=== PATIENT | male | born 1975 | race African-American/Black ===

== ENCOUNTER 2018-09-22 01:13 | Emergency (ER) | payer OTHER ==
--- NOTE | 2018-09-22 01:19 | EDM.PDOC ---
ED HPI GENERAL MEDICAL PROBLEM - General Stated Complaint: LEFT INDEX FINGER BROKEN Time Seen by Provider: 09/22/18 01:19 Source of Information: Reports: Patient - History of Present Illness INITIAL COMMENTS - FREE TEXT/NARRATIVE: HISTORY AND PHYSICAL: History of present illness: [Presents with a work injury to his left distal index finger my initially seen at the [facility] at 2300 she was performed I did download the x-ray to [facility] for viewing Has a distal tuft fracture of the left second digit, with open lesion Apparently a truck axle fell on the distal portion of his finger There is a nice clean cut directly through the nail, no avulsion of the nail bed , however, it had lifted the nail significantly with the proximal portion of finger nail, a gram of Rocephin and tetanus status was updated, I did perform a digital block after wound was cleansed and explored Under sterile conditions was able to remove the fingernail, and performed 3 interrupted sutures of 4-0 Monocryl sutures, to approximate distal portion. Bacitracin Bandaging Splint Review of systems: As per history of present illness and below otherwise all systems reviewed and negative. Past medical history: As per history of present illness and as reviewed below otherwise noncontributory. Surgical history: As per history of present illness and as reviewed below otherwise noncontributory. Social history: No reported history of drug or alcohol abuse. Family history: As per history of present illness and as reviewed below otherwise noncontributory. Physical exam: HEENT: Atraumatic, normocephalic, pupils reactive, negative for conjunctival pallor or scleral icterus, mucous membranes moist, throat clear, neck supple, nontender, trachea midline. Lungs: Clear to auscultation, breath sounds equal bilaterally, chest nontender. Heart: S1S2, regular, negative for clicks, rubs, or JVD. Abdomen: Soft, nondistended, nontender. Negative for masses or hepatosplenomegaly. Negative for costovertebral tenderness. Pelvis: Stable nontender. Genitourinary: Deferred. Rectal: Deferred. Extremities: Atraumatic, negative for cords or calf pain. Neurovascular unremarkable. Neuro: Awake, alert, oriented. Cranial nerves II through XII unremarkable. Cerebellum unremarkable. Motor and sensory unremarkable throughout. Exam nonfocal. Diagnostics: [X-ray on file provided via [place] ] Therapeutics: []T dap 1 g Rocephin IM Digital block, and care as per history of present illness Neosporin bandaging and splint applied DR. Cooney Impression: [ open distal tuft fracture second index finger ] Definitive disposition and diagnosis as appropriate pending reevaluation and review of above. left hand 2nd digit Pain Score (Numeric/FACES): 8 - Related Data Allergies Allergy/AdvReac Type Severity Reaction Status Date / Time No Known Allergies Allergy Verified 09/22/18 01:26 Home Meds: Home Meds . [No Known Home Meds] 09/22/18 [History] ED ROS GENERAL - Review of Systems Review Of Systems: See Below ED EXAM, GENERAL - Physical Exam Exam: See Below Course - Vital Signs Last Recorded V/S: Last Vital Signs Temp 97.6 F 09/22/18 01:26 Pulse 79 09/22/18 01:26 Resp 14 09/22/18 01:26 BP 127/64 09/22/18 01:26 Pulse Ox 99 09/22/18 01:26 - Orders/Labs/Meds Orders: Active Orders 24 hr Category Date Time Status Vaccines to be Administered [RC] PER UNIT ROUTINE Care 09/22/18 01:37 Active Meds: Medications Discontinued Medications Generic Name Dose Route Start Last Admin Trade Name Freq PRN Reason Stop Dose Admin Bacitracin 1 dose 09/22/18 02:28 Bacitracin Oint 1 Gm TOP 09/22/18 02:29 ONETIME ONE Bacitracin Confirm 09/22/18 02:28 Bacitracin Oint 1 Gm Administered 09/22/18 02:29 Dose 1 dose .ROUTE .STK-MED ONE Ceftriaxone Sodium 1 gm 09/22/18 01:37 09/22/18 01:57 Rocephin IM 09/22/18 01:38 Not Given ONETIME ONE Diphtheria/Tetanus/Acell Pertussis 0.5 ml 09/22/18 01:37 09/22/18 01:57 Adacel IM 09/22/18 01:38 0.5 ml .ONCE ONE Administration Lidocaine HCl Confirm 09/22/18 01:43 09/22/18 01:57 Xylocaine-Mpf 1% Administered 09/22/18 01:44 Not Given Dose 2 mls @ as directed .ROUTE .STK-MED ONE Ceftriaxone Sodium 1 gm/ 4 mls @ 4 mls/sec 09/22/18 01:44 09/22/18 01:56 Lidocaine HCl IM 09/22/18 01:45 4 mls/sec ONETIME ONE Administration Lidocaine HCl Confirm 09/22/18 02:15 Xylocaine-Mpf 1% Administered 09/22/18 02:16 Dose 10 mls @ as directed .ROUTE .STK-MED ONE Lidocaine HCl 5 ml 09/22/18 01:40 09/22/18 01:57 Xylocaine-Mpf 1% INJECT 09/22/18 01:41 Not Given ONETIME ONE Departure - Departure Time of Disposition: 02:47 Disposition: Home, Self-Care 01 Condition: Good Clinical Impression: Open fracture of distal phalangeal tuft - Discharge Information Additional Instructions: Medication as prescribed Kejohnathan/Arianna Follow-up with hand specialist Dr. Eros md. call phone number provided below to schedule appropriate follow-up Return to emergency room if symptoms persist or worsen or unable to gain appointment [facility] [address], [address] [place] [address] The following information is given to patients seen in the emergency department who are being discharged to home. This information is to outline your options for follow-up care. We provide all patients seen in our emergency department with a follow-up referral. The need for follow-up, as well as the timing and circumstances, are variable depending upon the specifics of your emergency department visit. If you don't have a primary care physician on staff, we will provide you with a referral. We always advise you to contact your personal physician following an emergency department visit to inform them of the circumstance of the visit and for follow-up with them and/or the need for any referrals to a consulting specialist. The emergency department will also refer you to a specialist when appropriate. This referral assures that you have the opportunity for follow-up care with a specialist. All of these measure are taken in an effort to provide you with optimal care, which includes your follow-up. Under all circumstances we always encourage you to contact your private physician who remains a resource for coordinating your care. When calling for follow-up care, please make the office aware that this follow-up is from your recent emergency room visit. If for any reason you are refused follow-up, please contact the [facility] emergency department at and asked to speak to the emergency department charge nurse. - My Orders Last 24 Hours: My Active Orders 09/22/18 01:37 Vaccines to be Administered [RC] PER UNIT ROUTINE - Assessment/Plan Last 24 Hours: My Active Orders 09/22/18 01:37 Vaccines to be Administered [RC] PER UNIT ROUTINE
[2018-09-22] MEDS ORDERED: Diphtheria,Pertussis(Acell),Tetanus Vaccine 0.5 ML Syringe IM ONE (01:37)
[2018-09-22] MEDS ORDERED: cefTRIAXone 1 GM Vial IM ONE (01:37)
[2018-09-22] MEDS ORDERED: Lidocaine 1% 2 ML ONE (01:43)
[2018-09-22] MEDS ORDERED: cefTRIAXone 1 GM in Lidocaine 1% 4 ML IM ONE (01:44)
[2018-09-22] MEDS ORDERED: Bacitracin Oint 1 GM U/D Packet TOP ONE (02:28)
[2018-09-22] MEDS ORDERED: Bacitracin Oint 1 GM U/D Packet ONE (02:28)
[2018-09-22] MEDS ORDERED: Acetaminophen/HYDROcodone 325-5 MG Tab PO ONE (02:49)
== END 2018-09-22 03:13 | disposition home or self-care (01) ==
LOC: MW.ED 01:13
DX: S62.631B Displaced fracture of distal phalanx of left index finger, initial encounter for open fracture (principal); Z23 Encounter for immunization; W20.8XXA Other cause of strike by thrown, projected or falling object, initial encounter; W23.0XXA Caught, crushed, jammed, or pinched between moving objects, initial encounter
CPT/HCPCS: 90471; 90715; 96372; 99282; 99283; A9270; J0696; J2001

== ENCOUNTER 2018-09-22 11:00 | Emergency (ER) | payer OTHER ==
--- NOTE | 2018-09-22 11:19 | EDM.PDOC ---
ED HPI GENERAL MEDICAL PROBLEM - General Stated Complaint: PAIN IN LEFT INDEX FINGER Time Seen by Provider: 09/22/18 11:12 Source of Information: Reports: Patient History Limitations: Reports: No Limitations - History of Present Illness INITIAL COMMENTS - FREE TEXT/NARRATIVE: History of present illness: []Patient was seen in the left distal index finger laceration with tuft fracture from a crush injury last night and was unable to make an appointment with Dr. Olvera this morning he came to the ER for wound check. Patient was told that he may lose his finger and is concerned and wants to see a hand specialist immediately. Review of systems: As per history of present illness and below otherwise all systems reviewed and negative. Past medical history: As per history of present illness and as reviewed below otherwise noncontributory. Surgical history: As per history of present illness and as reviewed below otherwise noncontributory. Social history: No reported history of drug or alcohol abuse. Family history: As per history of present illness and as reviewed below otherwise noncontributory. Physical exam: General: Well developed, well nourished in NAD HEENT: Atraumatic, normocephalic, pupils reactive, negative for conjunctival pallor or scleral icterus, mucous membranes moist, throat clear, neck supple, nontender, trachea midline. Lungs: Clear to auscultation, breath sounds equal bilaterally, chest nontender. Heart: S1S2, regular, negative for clicks, rubs, or JVD. Abdomen: NABS, Soft, nondistended, nontender. Negative for masses or hepatosplenomegaly. Negative for costovertebral tenderness. Pelvis: Stable nontender. Genitourinary: Deferred. Rectal: Deferred. Extremities: Patient is in a splint with a dressing, negative for cords or calf pain. Neurovascular unremarkable. Neuro: Awake, alert, oriented. Cranial nerves II through XII unremarkable. Cerebellum unremarkable. Motor and sensory unremarkable throughout. Exam nonfocal. Skin:warm and dry Diagnostics: None Therapeutics: None ED Course: Unremarkable Impression: Medical screening exam Prescriptions: None Plan: Follow-up with Dr. Olvera next available appointment. Definitive disposition and diagnosis as appropriate pending reevaluation and review of above. - Related Data Allergies Allergy/AdvReac Type Severity Reaction Status Date / Time No Known Allergies Allergy Verified 09/22/18 11:21 Home Meds: Home Meds . [No Known Home Meds] 09/22/18 [History] Past Medical History - Past Health History Medical/Surgical History: Denies Medical/Surgical History HEENT History: Reports: None Cardiovascular History: Reports: None Respiratory History: Reports: None Gastrointestinal History: Reports: None Genitourinary History: Reports: None Musculoskeletal History: Reports: None Neurological History: Reports: None Psychiatric History: Reports: None Endocrine/Metabolic History: Reports: None Hematologic History: Reports: None Immunologic History: Reports: None Oncologic (Cancer) History: Reports: None Dermatologic History: Reports: None - Past Surgical History Head Surgeries/Procedures: Reports: None Social & Family History - Family History Family Medical History: Noncontributory Review of Systems - Review of Systems Review Of Systems: ROS reveals no pertinent complaints other than HPI. ED EXAM, GENERAL - Physical Exam Exam: See Below (The history of present illness) Course - Vital Signs Last Recorded V/S: Last Vital Signs Temp 97.2 F 09/22/18 11:18 Pulse 64 09/22/18 11:18 Resp 18 09/22/18 11:18 BP 124/71 09/22/18 11:18 Pulse Ox 98 09/22/18 11:18 Departure - Departure Time of Disposition: 11:26 Disposition: Home, Self-Care 01 Condition: Good Clinical Impression: Encounter for medical screening examination - Discharge Information *PRESCRIPTION DRUG MONITORING PROGRAM REVIEWED*: No *COPY OF PRESCRIPTION DRUG MONITORING REPORT IN PATIENT MARY: No Additional Instructions: The following information is given to patients seen in the emergency department who are being discharged to home. This information is to outline your options for follow-up care. We provide all patients seen in our emergency department with a follow-up referral. The need for follow-up, as well as the timing and circumstances, are variable depending upon the specifics of your emergency department visit. If you don't have a primary care physician on staff, we will provide you with a referral. We always advise you to contact your personal physician following an emergency department visit to inform them of the circumstance of the visit and for follow-up with them and/or the need for any referrals to a consulting specialist. The emergency department will also refer you to a specialist when appropriate. This referral assures that you have the opportunity for follow-up care with a specialist. All of these measure are taken in an effort to provide you with optimal care, which includes your follow-up. Under all circumstances we always encourage you to contact your private physician who remains a resource for coordinating your care. When calling for follow-up care, please make the office aware that this follow-up is from your recent emergency room visit. If for any reason you are refused follow-up, please contact the [facility] Emergency Department at and asked to speak to the emergency department charge nurse. Call for next Available appointment: [facility] Pl[facility] Professional Building [address] [place] [address], [address] [place] [address]
== END 2018-09-22 11:47 | disposition home or self-care (01) ==
LOC: MW.ED 11:00
DX: S62.631B Displaced fracture of distal phalanx of left index finger, initial encounter for open fracture (principal); W23.0XXA Caught, crushed, jammed, or pinched between moving objects, initial encounter
CPT/HCPCS: 99282

== ENCOUNTER 2019-07-13 16:42 | Emergency (ER) | payer SELFPAY ==
[2019-07-13] MEDS ORDERED: Ketorolac 60 MG/2 ML SDV IM ONE (17:05)
--- NOTE | 2019-07-13 17:06 | EDM.PDOC ---
ED HPI GENERAL MEDICAL PROBLEM - General Chief Complaint: General Stated Complaint: PAIN IN SIDE Time Seen by Provider: 07/13/19 16:43 Source of Information: Reports: Patient History Limitations: Reports: No Limitations - History of Present Illness INITIAL COMMENTS - FREE TEXT/NARRATIVE: HISTORY AND PHYSICAL: History of present illness: Patient is a 44-year-old male who presents to the ED today with concern of left lower rib pain over the past 2 days. Patient states the pain is worse when he presses over the ribs and worse with movement. Patient states also if he takes a big deep breath and he is able to feel the area where the pain is. Patient denies any trauma or injury to the ribs or any associated symptoms. Patient denies any other symptoms or concerns or any health history. Patient denies fever, chills, chest pain, shortness of breath, or cough. Denies headache, neck stiff ness, change in vision, syncope, or near syncope. Denies nausea, vomiting, abdominal pain, diarrhea, constipation, or dysuria. Has not noted any blood in urine or stool. Patient has been eating and drinking appropriately. Review of systems: As per history of present illness and below otherwise all systems reviewed and negative. Past medical history: As per history of present illness and as reviewed below otherwise noncontributory. Surgical history: As per history of present illness and as reviewed below otherwise noncontributory. Social history: See social history for further information Family history: As per history of present illness and as reviewed below otherwise noncontributory. Physical exam: General: Patient is alert, oriented, and in no acute distress. Patient sitting comfortably on exam table. HEENT: Atraumatic, normocephalic, pupils equal and reactive bilaterally, negative for conjunctival pallor or scleral icterus, mucous membranes moist, TMs normal bilaterally, throat clear, neck supple, nontender, trachea midline. No drooling or trismus noted. No meningeal signs. No hot potato voice noted. Lungs: Clear to auscultation, breath sounds equal bilaterally. Patient does have mild pain with palpation over the left-sided ribs #9, 10 and 11 Heart: S1S2, regular rate and rhythm without overt murmur Abdomen: Soft, nondistended, nontender. Negative for masses or hepatosplenomegaly. Negative for costovertebral tenderness. Pelvis: Stable nontender. Genitourinary: Deferred. Rectal: Deferred. Skin: Intact, warm, dry. No lesions or rashes noted. Extremities: Atraumatic, negative for cords or calf pain. Neurovascular unremarkable. Neuro: Awake, alert, oriented. Cranial nerves II through XII unremarkable. Cerebellum unremarkable. Motor and sensory unremarkable throughout. Exam nonfocal. Notes: Discussed the importance for follow-up with a primary care provider. Voices understanding and is agreeable to plan of care. Denies any further questions or concerns at this time. Diagnostics: Rib with chest x-ray, EKG Therapeutics: Toradol Prescription: Diclofenac Impression: Left-sided rib pain Plan: 1. Rest, ice and or heat the affected area. You can apply ice and or heat 15 minutes on, 15 minutes off. 2. Tylenol as directed for pain management or discomfort. Take medication as prescribed. 3. Follow up with the primary care provider as discussed. Return to the ED as needed and as discussed. Definitive disposition and diagnosis as appropriate pending reevaluation and review of above. left ribs/back/shoulder Pain Score (Numeric/FACES): 7 - Related Data Allergies Allergy/AdvReac Type Severity Reaction Status Date / Time No Known Allergies Allergy Verified 07/13/19 16:56 Home Meds: Home Meds Diclofenac Sodium [Voltaren] 75 mg PO BIDMEALS PRN #15 tab.cr 07/13/19 [Rx] Past Medical History - Past Health History Medical/Surgical History: Denies Medical/Surgical History HEENT History: Reports: None Cardiovascular History: Reports: None Respiratory History: Reports: None Gastrointestinal History: Reports: None Genitourinary History: Reports: None Musculoskeletal History: Reports: None Neurological History: Reports: None Psychiatric History: Reports: None Endocrine/Metabolic History: Reports: None Hematologic History: Reports: None Immunologic History: Reports: None Oncologic (Cancer) History: Reports: None Dermatologic History: Reports: None - Past Surgical History Head Surgeries/Procedures: Reports: None Social & Family History - Family History Family Medical History: Noncontributory - Tobacco Use Smoking Status *Q: Current Every Day Smoker Years of Tobacco use: 20 Packs/Tins Daily: 0 - Caffeine Use Caffeine Use: Reports: None - Recreational Drug Use Recreational Drug Use: No ED ROS GENERAL - Review of Systems Review Of Systems: Comprehensive ROS is negative, except as noted in HPI. ED EXAM, GENERAL - Physical Exam Exam: See Below (See dictation) Course - Vital Signs Last Recorded V/S: Last Vital Signs Temp 97.0 F 07/13/19 16:54 Pulse 70 07/13/19 16:54 Resp 18 07/13/19 16:54 BP 124/70 07/13/19 16:54 Pulse Ox 99 07/13/19 16:54 - Orders/Labs/Meds Orders: Active Orders 24 hr Category Date Time Status EKG Documentation Completion [RC] STAT Care 07/13/19 17:03 Active Meds: Medications Discontinued Medications Generic Name Dose Route Start Last Admin Trade Name Freq PRN Reason Stop Dose Admin Ketorolac Tromethamine 60 mg 07/13/19 17:05 07/13/19 17:42 Toradol IM 07/13/19 17:06 60 mg ONETIME ONE Administration Departure - Departure Time of Disposition: 17:50 Disposition: Home, Self-Care 01 Clinical Impression: Rib pain - Discharge Information Prescriptions: Diclofenac Sodium [Voltaren] 75 mg PO BIDMEALS PRN #15 tab.cr PRN Reason: Pain Referrals: PCP,None [Primary Care Provider] - Forms: ED Department Discharge Additional Instructions: The following information is given to patients seen in the emergency department who are being discharged to home. This information is to outline your options for follow-up care. We provide all patients seen in our emergency department with a follow-up referral. The need for follow-up, as well as the timing and circumstances, are variable depending upon the specifics of your emergency department visit. If you don't have a primary care physician on staff, we will provide you with a referral. We always advise you to contact your personal physician following an emergency department visit to inform them of the circumstance of the visit and for follow-up with them and/or the need for any referrals to a consulting specialist. The emergency department will also refer you to a specialist when appropriate. This referral assures that you have the opportunity for follow-up care with a specialist. All of these measure are taken in an effort to provide you with optimal care, which includes your follow-up. Under all circumstances we always encourage you to contact your private physician who remains a resource for coordinating your care. When calling for follow-up care, please make the office aware that this follow-up is from your recent emergency room visit. If for any reason you are refused follow-up, please contact the [facility] Emergency Department at and asked to speak to the emergency department charge nurse. [facility] [address] [place] [address] [address] 1. Rest, ice and or heat the affected area. You can apply ice and or heat 15 minutes on, 15 minutes off. 2. Tylenol as directed for pain management or discomfort. Take medication as prescribed. 3. Follow up with the primary care provider as discussed. Return to the ED as needed and as discussed. - My Orders Last 24 Hours: My Active Orders 07/13/19 17:03 EKG Documentation Completion [RC] STAT - Assessment/Plan Last 24 Hours: My Active Orders 07/13/19 17:03 EKG Documentation Completion [RC] STAT
--- NOTE | 2019-07-13 17:37 | CR ---
INDICATION: Left rib pain TECHNIQUE: Chest and four views left wrist. COMPARISON: None FINDINGS: Cardiovascular and mediastinum: Heart size and vasculature are normal in caliber and appearance. Mediastinum is within normal limits. Lungs and pleural spaces: Lungs are clear. No sign of infiltrate or mass. No sign of pleural effusion. No pneumothorax. Bones and soft tissues: Detailed oblique images of the left ribs demonstrate no fractures or bone lesions. IMPRESSION: Unremarkable chest and left ribs. Dictated by Nelida Waldron MD @ Jul 13 2019 5:35PM Signed by Dr. Nelida Waldron @ Jul 13 2019 5:35PM
== END 2019-07-13 17:57 | disposition home or self-care (01) ==
LOC: MW.ED 16:42
DX: R07.81 Pleurodynia (principal); F17.210 Nicotine dependence, cigarettes, uncomplicated
CPT/HCPCS: 71101; 93005; 96372; 99283; J1885

== ENCOUNTER 2024-01-12 14:09 | Emergency (ER) | payer SELFPAY ==
[2024-01-12 14:59] LABS: APPEARANCE,URINE CLEAR; BILIRUBIN,URINE NEGATIVE (NEGATIVE); COLOR,URINE YELLOW; GLUCOSE,URINE NEGATIVE (NEGATIVE); KETONES,URINE NEGATIVE (NEGATIVE); LEUKOCYTE ESTERASE,URINE NEGATIVE (NEGATIVE); NITRITE,URINE NEGATIVE (NEGATIVE); OCCULT BLOOD,URINE NEGATIVE (NEGATIVE); PH,URINE 7.5 (5.0-8.0); PROTEIN,URINE NEGATIVE (NEGATIVE); UROBILINOGEN,URINE 0.2 EU/dL (<2.0)
[2024-01-12 15:06] LABS: BACTERIA,URINE NOT SEEN (NEGATIVE); EPITHELIAL CELLS,URINE RARE (NONE-FEW); RBC,URINE NONE SEEN (0-2/HPF); WBC,URINE 0-2 (0-5/HPF)
[2024-01-12 16:28] LABS: C. TRACHOMATIS BY PCR NOT DETECTED; N. GONORRHOEAE BY PCR NOT DETECTED
== END 2024-01-12 17:10 | disposition home or self-care (01) ==
LOC: MW.ED 14:09
DX: B00.9 Herpesviral infection, unspecified (principal); Z79.899 Other long term (current) drug therapy
CPT/HCPCS: 81001; 87491; 87591; 99283